=== PATIENT | female | born 1970 | race African-American/Black ===

== ENCOUNTER 2017-09-02 14:25 | Emergency (ER) | payer OTHER | END 2017-09-02 15:25 | disposition home or self-care (01) | LOC: ER 14:25 | DX: M54.5 Low back pain (principal); R25.2 Cramp and spasm | CPT/HCPCS: 99283 ==

== ENCOUNTER 2018-11-20 11:30 | Emergency (ER) | payer OTHER ==
[~2018-11-20] VITALS: Ht 160 cm; Wt 68.0 kg
[~2018-11-20 11:30] MED LIST: DIAZ5TAB PO; HYDR-3164 PO; NAPR-695 PO
[2018-11-20 12:21] VITALS: BP 167/90
--- NOTE | 2018-11-20 12:33 | PHYS DOC ---
Past Medical History Past Medical History: No Pertinent History Past Surgical History: Tubal ligation, Other Additional Past Surgical Histo: R breast biopsy Alcohol Use: Heavy Drug Use: None Adult General Chief Complaint Chief Complaint: LACERATION/AVULSION [facility] HPI Patient is a 48 year old female who presents with L foot pain. The patient states that she was walking barefoot in a parking lot last night around 5:00 PM when she stepped on something and it cut her foot. The patient states that her foot is tender today. Had tetanus shot updated ago months ago. Has a scab on the posterior portion of the left foot. No Laceration noted. Rates her pain as 3 out of 10 in severity and has not taken any pain medicine prior to arrival. Review of Systems Review of Systems Constitutional: Denies fever or chills [] Eyes: Denies change in visual acuity, redness, or eye pain [] HENT: Denies nasal congestion or sore throat [] Respiratory: Denies cough or shortness of breath [] Cardiovascular: No additional information not addressed in HPI [] GI: Denies abdominal pain, nausea, vomiting, bloody stools or diarrhea [] : Denies dysuria or hematuria [] Musculoskeletal: Denies back pain but reports L foot pain. Integument: Denies rash or skin lesions [] Neurologic: Denies headache, focal weakness or sensory changes [] Endocrine: Denies polyuria or polydipsia [] Complete systems were reviewed and found to be within normal limits, except as documented in this note. Allergies Allergies Allergies Coded Allergies Type Severity Reaction Last Updated Verified No Known Drug Allergies 09/02/17 No Physical Exam Physical Exam Constitutional: Well developed, well nourished, no acute distress, non-toxic appearance. [] HENT: Normocephalic, atraumatic, bilateral external ears normal, oropharynx moist, no oral exudates, nose normal. [] Eyes: PERRLA, EOMI, conjunctiva normal, no discharge. [] Neck: Normal range of motion, no tenderness, supple, no stridor. [] Cardiovascular:Heart rate regular rhythm, no murmur [] Lungs & Thorax: Bilateral breath sounds clear to auscultation [] Abdomen: Bowel sounds normal, soft, no tenderness, no masses, no pulsatile masses. [] Skin: Warm, dry, no erythema, has scab on bottom of left foot, no exudate. Back: No tenderness, no CVA tenderness. [] Extremities: No tenderness, no cyanosis, no clubbing, ROM intact, no edema. [] Neurologic: Alert and oriented X 3, normal motor function, normal sensory function, no focal deficits noted. [] Psychologic: Affect normal, judgement normal, mood normal. [] Current Patient Data Vital Signs Vital Signs Date Time Temp Pulse Resp B/P (MAP) Pulse Ox O2 Delivery O2 Flow Rate FiO2 11/20/18 12:21 98.0 69 12 167/90 (115) 97 Room Air 98.0 EKG EKG [] Radiology/Procedures Radiology/Procedures [] Course & Med Decision Making Course & Med Decision Making Pertinent Labs and Imaging studies reviewed. (See chart for details) Tetanus shot is updated. Directed patient to keep wound clean and dressed, take ibuprofen for inflammation and put neosporin on wound. Patient is agreeable. Patient also requests walking boot. Dragon Disclaimer Dragon Disclaimer This electronic medical record was generated, in whole or in part, using a voice recognition dictation system. Departure Departure Impression: Primary Impression: Foot pain Disposition: HOME, SELF-CARE Condition: STABLE Referrals: NO PCP (PCP) Patient Instructions: Wound Care, [id number] Additional Instructions: Thank you for visiting [facility]. We appreciate you trusting us with your care. If any additional problems come up don't hesitate to return to visit us. Please follow up with your primary care provider so they can plan additional care if needed and know about the problem that you had. If symptoms worsen come back to the Emergency Department. Any concerning symptoms that start such as chest pain, shortness of Air, weakness or numbness on one side of the body, running high fevers or any other concerning symptoms return to the ER. Please keep wound clean and covered. Keep neosporin on wound. Take ibuprofen for inflammation as needed per label instructions. Problem Qualifiers Primary Impression: Foot pain Laterality: left Qualified Codes: M79.672 - Pain in left foot BURKSSANDRA ARROYO PRINCESS Nov 20, 2018 12:33
[2018-11-20] MEDS ORDERED: NEOMY/BACITR/POLYMYXIN OINT PACKET. TP ONE (12:45)
== END 2018-11-20 13:14 | disposition home or self-care (01) ==
LOC: ER 11:30
DX: M79.672 Pain in left foot (principal); F10.20 Alcohol dependence, uncomplicated; Y90.9 Presence of alcohol in blood, level not specified
CPT/HCPCS: 99283

== ENCOUNTER 2019-02-02 09:02 | Emergency (ER) | payer OTHER ==
[~2019-02-02] VITALS: Ht 160 cm; Wt 72.6 kg
[2019-02-02] MEDS ORDERED: BENZ100C PO (09:17)
[2019-02-02] MEDS ORDERED: hydroCHLOROthiazide 12.5 MG CAPSULE PO STA (09:18)
--- NOTE | 2019-02-02 09:18 | PHYS DOC ---
Past Medical History Past Medical History: No Pertinent History Past Surgical History: Tubal ligation, Other Additional Past Surgical Histo: R breast biopsy Alcohol Use: Heavy Drug Use: None Adult General Chief Complaint Chief Complaint: COUGH HPI HPI Patient is a 48 year old female that presents with a cough this been ongoing for 3 weeks. The patient denies any fever, states she's been having a runny nose, and also been congested. Has not been taking medicine at home. Also states that she's not been taking her blood pressure medicine as she is not having she has high blood pressure. The patient blood pressure in her room is 208/91. The patient denies any blurry vision, dizziness him or symptoms from her blood pressure. She denies any pain at this time and rates her pain as 0 out of 10 in severity. Review of Systems Review of Systems Constitutional: Denies fever or chills [] Eyes: Denies change in visual acuity, redness, or eye pain [] HENT: Reports nasal congestion and runny nose. Respiratory: Reports cough but denies shortness of breath [] Cardiovascular: No additional information not addressed in HPI [] GI: Denies abdominal pain, nausea, vomiting, bloody stools or diarrhea [] : Denies dysuria or hematuria [] Musculoskeletal: Denies back pain or joint pain [] Integument: Denies rash or skin lesions [] Neurologic: Denies headache, focal weakness or sensory changes [] Endocrine: Denies polyuria or polydipsia [] Complete systems were reviewed and found to be within normal limits, except as documented in this note. Current Medications Current Medications Current Medications Medications (Trade) Dose Ordered Sig/[facility] Start Time Stop Time Status Last Admin Dose Admin Hydrochlorothiazide (Microzide) 12.5 mg 1X STAT 02/02/19 09:18 02/02/19 09:21 DC 02/02/19 09:26 12.5 MG Allergies Allergies Allergies Coded Allergies Type Severity Reaction Last Updated Verified No Known Drug Allergies 09/02/17 No Physical Exam Physical Exam Constitutional: Well developed, well nourished, no acute distress, non-toxic appearance. [] HENT: Normocephalic, atraumatic, bilateral external ears normal, oropharynx moist, no oral exudates, nose turbinates are inflamed. Eyes: PERRLA, EOMI, conjunctiva normal, no discharge. [] Neck: Normal range of motion, no tenderness, supple, no stridor. [] Cardiovascular:Heart rate regular rhythm, no murmur [] Lungs & Thorax: Bilateral breath sounds clear to auscultation [] Abdomen: Bowel sounds normal, soft, no tenderness, no masses, no pulsatile masses. [] Skin: Warm, dry, no erythema, no rash. [] Back: No tenderness, no CVA tenderness. [] Extremities: No tenderness, no cyanosis, no clubbing, ROM intact, no edema. [] Neurologic: Alert and oriented X 3, normal motor function, normal sensory function, no focal deficits noted. [] Psychologic: Affect normal, judgement normal, mood normal. [] Current Patient Data Vital Signs Vital Signs Date Time Temp Pulse Resp B/P (MAP) Pulse Ox O2 Delivery O2 Flow Rate FiO2 02/02/19 09:50 82 18 170/84 (112) 98 Room Air 02/02/19 09:05 98.3 98.3 EKG EKG [] Radiology/Procedures Radiology/Procedures [] Course & Med Decision Making Course & Med Decision Making Pertinent Labs and Imaging studies reviewed. (See chart for details) Patient appears to have a cough related to upper respiratory infection. The patient is not taking her blood pressure medicine her blood pressure is high on arrival to the ER. The patient is asymptomatic but however since the blood pressure is 208 systolic will give her medicine in the ER. Discussed the importance of taking her blood pressure medicine at home as prescribed by her primary care doctor, and following up with primary care doctor regarding her blood pressure medicine. 0958: BP has improved to 170/86. Will d/c home. Dragon Disclaimer Yancy Disclaimer This electronic medical record was generated, in whole or in part, using a voice recognition dictation system. Departure Departure Impression: Primary Impression: Upper respiratory infection Disposition: HOME, SELF-CARE Condition: STABLE Referrals: NO PCP (PCP) Patient Instructions: Upper Respiratory Infection, Adult Additional Instructions: Thank you for visiting [facility]. We appreciate you trusting us with your care. If any additional problems come up don't hesitate to return to visit us. Please follow up with your primary care provider so they can plan additional care if needed and know about the problem that you had. If symptoms worsen come back to the Emergency Department. Any concerning symptoms that start such as chest pain, shortness of air, weakness or numbness on one side of the body, running high fevers or any other concerning symptoms return to the ER. Please follow up with her primary care doctor regarding blood pressure. Please fill your medications at any pharmacy and follow the prescription instructions. Please get over the counter Zyrtec and take as label instructs to help with runny nose and congestion. Can also try Flonase, and Mucinex as well. Take per label instructions. Scripts Benzonatate (TESSALON PERLE) 100 Mg Capsule 100 MG PO TID PRN for COUGH for 10 Days, #30 CAP Prov: SANDRA BURKS APRN 02/02/19 Problem Qualifiers Primary Impression: Upper respiratory infection URI type: unspecified URI Qualified Codes: J06.9 - Acute upper respiratory infection, unspecified SANDRA BURKS APRN Feb 02, 2019 09:18
[2019-02-02 09:50] VITALS: BP 170/84
== END 2019-02-02 10:03 | disposition home or self-care (01) ==
LOC: ER 09:02
DX: J06.9 Acute upper respiratory infection, unspecified (principal); F10.20 Alcohol dependence, uncomplicated; Y90.9 Presence of alcohol in blood, level not specified
CPT/HCPCS: 99283

== ENCOUNTER → 2019-06-01 | Outpatient (CLI) | payer MEDICAID, OTHER ==
[~2019-06-01] MED LIST changes: +BENZ100C PO
--- NOTE | 2019-06-01 14:17 | RAD ---
DATE: 06/01/2019 EXAM: MAMMO MONTSE ANKUSH HENSLEY, BREAST LEFT HISTORY: Palpable abnormality the left upper-outer breast. COMPARISON: None This study was interpreted with the benefit of Computerized Aided Detection (CAD). Breast Density: HETERO The breast parenchyma is heterogenously dense, which could reduce sensitivity of mammography. Breast parenchyma level C. FINDINGS: Marker was placed at the left upper-outer breast. A low-density to intermediate density mass measuring 2.3 cm diameter is present at the posterior breast. Numerous small masses are identified to involve the left breast. A few to several small masses involving the right breast also appear to be present. Limited left upper-outer breast ultrasound was performed. There is a cyst measuring up to 2.1 cm diameter 6 cm from the nipple at the 2:00 region. Additional smaller cyst is also present in this region measuring 1 cm in diameter. IMPRESSION: Left upper-outer breast cysts. Numerous small masses bilaterally. BI-RADS CATEGORY: 3 PROBABLY BENIGN FINDING(S)-SHORT INTERVAL FOLLOW-UP SUGGESTED RECOMMENDED FOLLOW-UP: 6M 6 MONTH FOLLOW-UP. Bilateral six-month follow-up mammographic exam is recommended to assess stability of the numerous small masses which probably consists or other benign process. The palpable abnormality reported by the patient left upper-outer breast corresponds to cysts. PQRS compliance statement: Patient information was entered into a reminder system with a target due date for the next mammogram. Mammography is a sensitive method for finding small breast cancers, but it does not detect them all and is not a substitute for careful clinical examination. A negative mammogram does not negate a clinically suspicious finding and should not result in delay in biopsying a clinically suspicious abnormality. "Our facility is accredited by the [employer] Mammography Program."
== END | disposition home or self-care (01) ==
LOC: MAMMO 12:59
PROVIDERS: ATTEND Internal Medicine
DX: N60.02 Solitary cyst of left breast (principal); N63.20 Unspecified lump in the left breast, unspecified quadrant; N63.10 Unspecified lump in the right breast, unspecified quadrant; Z80.3 Family history of malignant neoplasm of breast
CPT/HCPCS: 76641; 77066; G0279; 77062

== ENCOUNTER 2020-10-21 12:38 | Emergency (ER) | payer OTHER ==
[~2020-10-21] VITALS: Ht 160 cm; Wt 69.1 kg
[2020-10-21 14:00] VITALS: BP 140/77
--- NOTE | 2020-10-21 14:47 | RAD ---
XR HAND_RIGHT 3 VIEWS Clinical indications: Reason: right hand pain/swelling / Spl. Instructions: / History: Findings: There is a nondisplaced nonangulated oblique fracture of the midshaft of the fourth metaca rpal bone. No dislocation or lytic process is seen. Impression: Acute fracture of the fourth metacarpal bone. Electronically signed by: Chilango Barbour MD (10/21/2020 2:45 PM) [id number]
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
[2020-10-21] MEDS ORDERED: HYDR-2761 PO (16:41)
[2020-10-21] MEDS ORDERED: DOCU-109 PO (16:41)
== END 2020-10-21 17:11 | disposition home or self-care (01) ==
LOC: ER 12:38
DX: S62.354A Nondisplaced fracture of shaft of fourth metacarpal bone, right hand, initial encounter for closed fracture (principal); F17.200 Nicotine dependence, unspecified, uncomplicated; F10.20 Alcohol dependence, uncomplicated; Y90.9 Presence of alcohol in blood, level not specified; X58.XXXA Exposure to other specified factors, initial encounter; Y93.89 Activity, other specified; Y92.89 Other specified places as the place of occurrence of the external cause; Y99.8 Other external cause status
CPT/HCPCS: 29125; 73130; 99283